=== PATIENT | female | born 1955 | race Hispanic/Latino ===

== ENCOUNTER 2021-03-21 10:22 | Observation (INO) | payer MEDICARE ==
[~2021-03-21] VITALS: Ht 160 cm; Wt 78.5 kg
[2021-03-21 10:50] LABS: BASOPHILS % (AUTO) 0.3 % (0.0-5.0); EOSINOPHILS % (AUTO) 1.8 % (0.0-8.0); HEMATOCRIT 42.3 % (36-48); LYMPHOCYTES % (AUTO) 27.3 % (21.0-51.0); MEAN CORPUSCULAR HEMOGLOBIN 26.9 pg (27.0-33.0); MEAN CORPUSCULAR HGB CONC 31.7 g/dL (32.0-36.0); MEAN CORPUSCULAR VOLUME 84.9 fL (79-99); MONOCYTES % (AUTO) 8.7 % (3.0-13.0); NEUTROPHILS % (AUTO) 61.6 % (40.0-77.0); PLATELET COUNT (AUTO) 225 K/uL (130-400); RED BLOOD CELL COUNT(AUTO) 4.98 MIL/uL (4.00-5.50); RED CELL DISTRIBUTION WIDTH 15.6 % (11.0-15.5); WHITE BLOOD COUNT (AUTO) 6.6 K/uL (4.8-10.8)
[2021-03-21 11:03] LABS: CREATININE 0.8 mg/dL (0.5-1.5); POTASSIUM 3.7 mmol/L (3.5-5.1)
[2021-03-21 11:08] LABS: ALBUMIN 3.9 g/dL (3.5-5.0); BILIRUBIN,TOTAL 0.5 mg/dL (0.2-1.0); TOTAL PROTEIN, SERUM 7.7 g/dL (6.0-8.3)
[2021-03-21 11:10] LABS: APPEARANCE,URINE Clear (CLEAR); BILIRUBIN,URINE Negative (NEGATIVE); COLOR,URINE Yellow (YELLOW); GLUCOSE, URINE (UA) Negative (NEGATIVE); KETONES,URINE Negative (NEGATIVE); LEUKOCYTE ESTERASE ,URINE Large (NEGATIVE); NITRATE,URINE Negative (NEGATIVE); OCCULT BLOOD,URINE Negative (NEGATIVE); PROTEIN,URINE Negative (NEGATIVE); UROBILINOGEN,URINE 0.2 mg/dL (0.2-1.0)
[2021-03-21 11:18] LABS: RBC,URINE 0-1 /HPF (0-1)
[2021-03-21 11:19] LABS: BACTERIA,URINE Few /HPF (None Seen)
[2021-03-21 11:23] LABS: CREATINE KINASE, TOTAL 152 U/L (21-232); LDL DIRECT 73 mg/dL (0-99)
[2021-03-21 11:29] LABS: INR 1.05 (0.85-1.15); PROTHROMBIN TIME 11.4 SEC (9.6-11.6)
[2021-03-21] MEDS ORDERED: ASPIRIN 325MG TAB ONE (11:31)
[2021-03-21] MEDS ORDERED: ATOR40TA69 PO (11:37)
[2021-03-21] MEDS ORDERED: LORA10TA7 PO (11:37)
[2021-03-21] MEDS ORDERED: ASPI-1197 PO (11:37)
[2021-03-21] MEDS: ASPIRIN 325MG TAB PO SCH (11:38)
[2021-03-21] MEDS ORDERED: IOHEXOL-350 75 ML VIAL IV ONE (11:44)
[2021-03-21] MEDS ORDERED: ACETAMINOPHEN 325 MG TAB PO PRN (14:00)
[2021-03-21] MEDS ORDERED: LACTULOSE 20 GM/30 ML UDCUP PO PRN (14:00)
[2021-03-21] MEDS ORDERED: ALBUTEROL 0.083% 2.5 MG/3 ML INH IH PRN (14:00)
[2021-03-21] MEDS ORDERED: LABETALOL 20MG SYG IV PRN (14:00)
[2021-03-21] MEDS ORDERED: HYDRALAZINE 20MG/ML VIAL IV PRN (14:00)
[2021-03-21 17:37] VITALS: BP 117/70
[2021-03-21] MEDS ORDERED: SIMVASTATIN 20 MG TABLET PO SCH (21:00)
== END 2021-03-21 18:40 | disposition short-term general hospital (02) ==
LOC: EDH 10:22 → INTOOBSV 13:50 → EDHIP 13:50
PROVIDERS: ADMIT Internal Medicine Pulmonary Disease; ATTEND Internal Medicine Pulmonary Disease
DX: I61.0 Nontraumatic intracerebral hemorrhage in hemisphere, subcortical (principal); Z20.822 Contact with and (suspected) exposure to COVID-19; R47.1 Dysarthria and anarthria; E78.00 Pure hypercholesterolemia, unspecified; Z79.82 Long term (current) use of aspirin
CPT/HCPCS: 36415; 70450; 70496; 70498; 70551; 71045; 80053; 81001; 82550; 82948; 83721; 83880; 84484; 85025; 85610; 85730; 87088; 87635; 93005; 99291; G0378 ×5; Q9967